=== PATIENT | male | born 2000 | race Caucasian/White ===

== ENCOUNTER 2021-11-03 17:29 | Emergency (ER) | payer BC ==
[2021-11-03 17:45] VITALS: BP 116/46; PULSE 99; TEMP 98.1; BMI 24.2
[2021-11-03] MEDS ORDERED: LIDOCAINE 2.5%/PRILOCAINE 2.5% (5 Gram/TUBE) TP ONE (18:19)
== END 2021-11-03 19:47 | disposition home or self-care (01) ==
LOC: FER 17:29
DX: S01.112A Laceration without foreign body of left eyelid and periocular area, initial encounter (principal); Y04.0XXA Assault by unarmed brawl or fight, initial encounter
CPT/HCPCS: 70450-TC; 70486-TC; 99284-25